=== PATIENT | male | born 1990 | race Caucasian/White ===

== ENCOUNTER 2021-07-11 10:13 | Outpatient (REF) | payer OTHER, SELFPAY ==
[2021-07-11 11:12] LABS: COVID-19 Test Negative (Negative)
== END 2021-07-11 10:14 | disposition home or self-care (01) ==
LOC: HO.LAB 10:13
PROVIDERS: Visit Provider Internal Medicine
DX: Z20.822 Contact with and (suspected) exposure to COVID-19 (principal)
CPT/HCPCS: 36415; 87635; C9803

== ENCOUNTER 2021-07-26 11:44 | Outpatient (REF) | payer OTHER, SELFPAY ==
[2021-07-26 14:13] LABS: COVID-19 Test Positive (Negative)
== END 2021-07-26 11:45 | disposition home or self-care (01) ==
LOC: HO.LAB 11:44
PROVIDERS: Visit Provider Internal Medicine
DX: Z20.822 Contact with and (suspected) exposure to COVID-19 (principal)
CPT/HCPCS: 36415; 87635; C9803

== ENCOUNTER 2022-02-03 19:24 | Emergency (ER) | payer OTHER, SELFPAY ==
[2022-02-03 19:35] VITALS: BP 132/86; PULSE 70; RESP 18; TEMP 37.3; O2SAT 98; BMI 31.9
== END 2022-02-03 22:06 | disposition left against medical advice (07) ==
PROVIDERS: Emergency Provider Emergency Medicine
DX: S89.91XA Unspecified injury of right lower leg, initial encounter (principal); X50.1XXA Overexertion from prolonged static or awkward postures, initial encounter; M79.604 Pain in right leg; Y93.83 Activity, rough housing and horseplay; Y92.9 Unspecified place or not applicable; Y99.9 Unspecified external cause status
CPT/HCPCS: 99281

== ENCOUNTER → 2022-10-25 11:00 | Outpatient (BNVA) | payer SELFPAY | PROVIDERS: Visit Provider Physician Assistant | DX: Z02.79 Encounter for issue of other medical certificate (principal) ==

== ENCOUNTER 2023-02-19 09:48 | Outpatient (AMB) | payer OTHER, SELFPAY ==
--- NOTE | 2023-02-19 10:51 | MHC.OFFWIV ---
Intake Vital Signs 02/19/23 10:59 Height 6 ft BP 102/74 Blood Pressure Location Lt brachial Position Sitting Pulse 67 Pulse Source Pulse Oximeter Temp 96.8 F Temp Source Temporal Artery Scan Pulse Oximetry (%) 97 Oxygen Delivery Method Room Air Intake Visit Reasons: EP Strep? [phone] Intake Note: Pt is here c/o sore throat for the last week. Pt states he has tested positive for strep five times in the last year. Patient Tobacco Use Status: Never used Tobacco Allergies No Known Allergies Allergy (Verified 02/19/23 11:28) Medication List - Last Reconciled 02/19/23 by Kofi Stewart MD No Known Home Meds Do you need a note to return to daycare/school/sports/work: No HPI EP Strep? [phone] HPI Details Patient presents for a sick visit. Reporting symptoms of sinus congestion, sore throat and difficulty swallowing. Low-grade fever. No family member is sick. No recent travel. Patient reports symptoms of malaise and fatigue. PFSH Social History Patient Tobacco Use Status: Never used Tobacco Physical Exam Vital Signs: Last Vital Signs Temp 96.8 F 02/19/23 10:59 Pulse 67 02/19/23 10:59 BP 102/74 02/19/23 10:59 Pulse Ox 97 02/19/23 10:59 Oxygen Delivery Method Room Air 02/19/23 10:59 Const General: cooperative and healthy appearing Nutritional Appearance: well nourished Orientation/consciousness: patient oriented x3 Limitations: no limitations HEENT Head: Yes normal to inspection Eyes General: appearance normal, both eyes and all related structures Neck Neck: Yes normal visual inspection Chest Chest palpation & inspection: normal palpation of entire chest wall Resp Effort & Inspection: normal respiratory effort Neuro General: patient oriented x3 Results AMB Rapid Strep AMB Rapid Strep Negative Last Edit by Jeanna Pelayo CMA on 02/19/23 11:11 Results Reviewed Results Reviewed: Laboratory Last Values Strep Scn [facility] Negative 02/19/23 11:09 Assessment & Plan Assessment & Plan (1) Upper respiratory tract infection: Code(s): J06.9 - Acute upper respiratory infection, unspecified Plan: Antibiotics ordered. Increase fluid intake. Tylenol for aches and pains. If symptoms worsen, follow-up here for a recheck. Orders: Orders AMB Rapid Strep Screen Today Z13.9 - Encounter for screening, unspecified Coding Level of Care Code Est Pt Level 3 (01032) Diagnoses Upper respiratory tract infection J06.9
[2023-02-19 10:59] VITALS: BP 102/74; PULSE 67; TEMP 36; O2SAT 97
== END 2023-02-19 11:49 | disposition home or self-care (01) ==
PROVIDERS: PCP Physician Assistant; Visit Provider Internal Medicine
DX: Z13.9 Encounter for screening, unspecified (principal); J06.9 Acute upper respiratory infection, unspecified
CPT/HCPCS: 87880; 99213

== ENCOUNTER 2023-05-01 15:54 | Outpatient (AMB) | payer OTHER, SELFPAY ==
[2023-05-01 15:57] VITALS: BP 122/82; PULSE 70; RESP 17; O2SAT 98; BMI 29.4
--- NOTE | 2023-05-01 15:57 | MHC.PC.OV ---
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 Recently had an episode a neck mass that spontaneous resolved. He does report getting strep throat every summer requiring antibiotics. Otherwise he has no complaints. Vaccines: Up-to-date with tetanus vaccine. Declines flu vaccine. Has gotten COVID vaccine [facility] Social History (Updated 05/01/23 @ 16:07 by Maximo Ruvalcaba PA-C) Housing: House Alcohol intake: current Alcohol intake frequency: a few times a month Alcohol type: beer Patient Tobacco Use Status: Never used Tobacco e-Cigarette/Vaping Use: Never Used Current occupational status: employed Current occupation: [employer] Cognitive needs: No Hearing needs: No Vision needs: No Questionnaire PHQ-9 Over the last 2 weeks, how often have you been bothered by any of the following problems? 1. Little interest or pleasure in doing things: not at all 2. Feeling down, depressed, or hopeless: not at all 3. Trouble falling or staying asleep, or sleeping too much: not at all 4. Feeling tired or having little energy: not at all 5. Poor appetite or overeating: not at all 6. Feeling bad about yourself - or that you are a failure or have let yourself or your family down: not at all 7. Trouble concentrating on things, such as reading the newspaper or watching television: not at all 8. Moving or speaking so slowly that other people could have noticed. Or the opposite - being so fidgety or restless that you have been moving around a lot more than usual: not at all 9. Thoughts that you would be better off or of hurting yourself in some way: not at all Total score: 0 Depression Screening Interpretation: Negative 60184 - PHQ-9 Billing: Yes Source: Developed by Drs. Ajit Mazariegos, Isabel Hoffmann, Blanco Us and colleagues, with an educational berkley from [employer]. Thrive Questionnaire Date Thrive assessed: 05/01/23 I am a: Patient What is your living situation today?: I have a steady place to live Within the past 12 months, did the food you bought not last and you didn't have the money to get more?: Never true Within the past 12 months, did you worry whether your food would run out before you got money to buy more?: Never true Do you have trouble paying for medicines?: No Do you have trouble getting transportation to medical appointments?: No Do you have trouble paying your heating and electricity bill?: No Do you have trouble taking care of your child, family member or friend?: No Do you have trouble with day-to-day activities such as bathing, preparing meals, shopping, managing finances, etc.?: No Are you currently unemployed and looking for a job?: No Are you interested in more education?: No Please select the resources that you would like help with: None Currently or been in a relationship where the following occur: no concerns reported AUDIT C Alcohol Use Questionnaire (AUDIT-C) 1. How often do you have a drink containing alcohol?: Monthly or less 2. How many drinks containing alcohol do you have on a typical day when you are drinking?: 1 or 2 3. How often do you have six or more drinks on one occasion?: Never Total Score: 1 BRODY-7 AMB Questionnaire BRODY-7 Date BRODY - 7 assessed: 05/01/23 Feeling nervous, anxious, or on edge: 0 = Not at all Not being able to stop or control worryin = Not at all Worrying too much about different things: 0 = Not at all Trouble relaxin = Not at all Being so restless that it is hard to sit still: 0 = Not at all Becoming easily annoyed or irritable: 0 = Not at all Feeling afraid as if something awful might happen: 0 = Not at all Total BRODY-7 score (0-4 normal; 5-9 mild; 10-14 moderate; 15-21 severe): 0 Source: Developed by Drs. Ajit Mazariegos, Isabel Hoffmann, Blanco Us and colleagues, with an educational berkley from [employer]. BRODY-7 Assessment Billing BRODY-7 Assessment Tool: BRODY-7 Assessment 49961 Review of Systems Const Denies headache(s) Eyes Denies loss of vision ENT Denies vertigo, Denies dizziness, Denies headache(s) and Denies sore throat Card Denies chest pain, Denies leg edema and Denies lightheadedness Resp Denies cough, Denies hemoptysis and Denies wheezing GI Denies abdominal pain, Denies melena, Denies constipation, Denies diarrhea and Denies vomiting Denies dysuria, Denies urinary frequency and Denies urinary urgency Musc Denies arthralgias, Denies joint swelling, Denies numbness and Denies tingling Neuro Denies Abnormal speech present, Denies behavioral changes, Denies vertigo, Denies dizziness, Denies headache(s), Denies loss of vision, Denies memory loss, Denies numbness and Denies tingling Psych Denies anxiety, Denies behavioral changes, Denies depression, Denies memory loss and Denies panic attacks Edson/Lymph Denies easy bleeding and Denies easy bruising Aller/Immun Denies wheezing Physical exam (Primary Care) Vital Signs: Last Vital Signs Pulse 70 05/01/23 15:57 Resp 17 05/01/23 15:57 BP 122/82 05/01/23 15:57 Pulse Ox 98 05/01/23 15:57 Oxygen Delivery Method Room Air 05/01/23 15:57 BMI result Body Mass Index 29.4 Tobacco/Smoking Status: Tobacco use Status Tobacco use date assessed 05/01/23 05/01/23 16:03 Patient Tobacco Use Status Never used Tobacco 05/01/23 16:03 e-Cigarette/Vaping Use Never Used 05/01/23 16:03 PHQ-9: PHQ-9 Score PHQ-9: Total score 0 05/01/23 16:03 Depression Screening Interpretation: Negative Thrive Assessment: Date of Thrive Assessment Date Thrive assessed 05/01/23 05/01/23 16:03 Currently or been in a relationship where the following occur: no concerns reported Const General: healthy appearing, no acute distress, alert and awake Nutritional Appearance: well nourished Orientation/consciousness: oriented to person, oriented to place and oriented to time HENMT Ears: TM's normal bilaterally General nose exam: Normal nasal mucous membranes and turbinates present Eyes Conjunctivae: conjunctivae normal Sclerae: sclerae normal Pupils: Equal, round and reactive pupils present Neck Neck: Yes no lymphadenopathy and Yes no JVD Thyroid: Thyroid normal Carotids: no bruits Resp Effort & Inspection: normal respiratory effort and not tachypneic Auscultation: no crackles, no rales, no rhonchi and no wheezes Cardio Rate: regular rate Rhythm: regular rhythm Heart sounds: no murmurs and normal S1 and S2 GI Palpation (GI): Soft to palpation, nontender, no hepatomegaly and no splenomegaly Auscultation: normal bowel sounds Skin General skin exam: no rashes or lesions noted and dry skin Neuro General: oriented to person, oriented to place and oriented to time Cranial nerves: Yes Equal, round and reactive pupils present Speech: No Abnormal speech present Gait exam (Neuro): Normal gait present Motor exam (neuro): no tremor noted Extrem Right upper extremity: full ROM Left upper extremity: full ROM Right lower extremity: full ROM; no edema Left lower extremity: full ROM; no edema Psych Mental Status: mental status grossly normal Speech and movement: Normal speech and movement present Affect: normal affect Attitude: cooperative Thought process: Normal thought process present Assessment and Plan Assessment & Plan (1) H/O paroxysmal supraventricular tachycardia: Code(s): Z86.79 - Personal history of other diseases of the circulatory system Plan: Patient has a history paroxysmal supraventricular tachycardia since age 10. Has been evaluated by Cardiology in the past though did not need any medication. He reports his frequency of attacks are random and only last about 5 minutes. (2) Screening for diabetes mellitus (DM): Code(s): Z13.1 - Encounter for screening for diabetes mellitus Orders: Orders Comprehensive [place]. Panel Fast Today Z13.1 - Encounter for screening for diabetes mellitus Coding Level of Care Code New Pt Level 4 (11931) Diagnoses H/O paroxysmal supraventricular tachycardia Z86.79 Screening for diabetes mellitus (DM) Z13.1 Additional Codes BRODY-7 Assessment Billing - BRODY-7 Assessment Tool: BRODY-7 Assessment 26535 ([id number])
== END 2023-05-01 16:17 | disposition home or self-care (01) ==
PROVIDERS: PCP Physician Assistant; Visit Provider Physician Assistant
DX: Z86.79 Personal history of other diseases of the circulatory system (principal); Z13.1 Encounter for screening for diabetes mellitus
CPT/HCPCS: 99204

== ENCOUNTER 2023-10-30 07:41 | Outpatient (REF) | payer OTHER, SELFPAY ==
[2023-10-30 08:54] LABS: Alanine Aminotransferase 35 U/L (0-40); Albumin Level 4.4 g/dL (3.5-5.0); Alkaline Phosphatase 58 U/L (39-117); Anion Gap 11 (12-20); Aspartate Amino Transferase 24 U/L (5-37); Bilirubin Total 0.9 mg/dL (0.0-1.0); Blood Urea Nitrogen 14 mg/dL (9-16); Calcium 9.2 mg/dL (8.4-10.2); Carbon Dioxide 25 mmol/L (22-29); Chloride 107 mmol/L (96-108); Estimated Glomerular Filt Rate > 60; Glucose Fasting 103 mg/dL (60-99); Potassium 3.9 mmol/L (3.3-5.1); Sodium 139 mmol/L (135-145); Total Protein 7.3 g/dL (6.5-8.0)
== END 2023-10-30 07:42 | disposition home or self-care (01) ==
LOC: HO.LAB 07:41
PROVIDERS: PCP Physician Assistant; Visit Provider Physician Assistant
DX: Z13.1 Encounter for screening for diabetes mellitus (principal)
CPT/HCPCS: 36415; 80053

== ENCOUNTER 2023-12-01 22:11 | Emergency (ER) | payer OTHER, SELFPAY ==
[2023-12-01 22:15] VITALS: BP 129/87; PULSE 80; RESP 16; TEMP 36.1; O2SAT 97; BMI 32.8
[2023-12-02 00:14] VITALS: BP 120/80; PULSE 77; RESP 16; TEMP 36.6; O2SAT 97
[2023-12-02] MEDS: Fluorescein Sodium STRIP 1 STRIP EYE-RIGHT (00:14)
[2023-12-02] MEDS: Tobramycin Sulfate 0.3% Sol Op 5 ML BTL 2 DROP EYE-RIGHT (00:14)
[2023-12-02] MEDS: Tetracaine HCl/PF 0.5% Oph Sol 4 ML DROPS 1 DROP EYE-RIGHT (00:14)
--- NOTE | 2023-12-02 01:22 | ED_ITS ---
HPI - Eye Problem General Chief complaint: Eye Problems Stated complaint: metal sliver in right eye Time Seen by Provider: 12/01/23 23:08 Source: patient Mode of arrival: ambulatory Limitations: no limitations History of Present Illness HPI Narrative: Patient was cutting metal earlier today and small speck of metal dust went to the right eye this happened at 14:00. No vision loss feels watery and foreign body sensation in the right eye Related Data Home Medications ?Medication ?Instructions ?Recorded ?Confirmed No Known Home Meds 05/01/23 05/01/23 Allergies Allergy/AdvReac Type Severity Reaction Status Date / Time No Known Allergies Allergy Verified 12/01/23 22:19 Review of Systems 2 Review of Systems: Yes all other systems are reviewed and are negative [facility] Social History Social History Housing: House Alcohol intake: current Alcohol intake frequency: a few times a month Alcohol type: beer Patient Tobacco Use Status: Never used Tobacco e-Cigarette/Vaping Use: Never Used Advance Directives: No Advance Directives Information Provided: No Do you have a plan to hurt others: No Plan Current occupational status: employed Current occupation: [employer] Cognitive needs: No Hearing needs: No Vision needs: No Physical Exam 2 Vital Signs: Vital Signs: Last Vital Signs Temp 97.9 F 12/02/23 00:14 Pulse 77 12/02/23 00:14 Resp 16 12/02/23 00:14 BP 120/80 12/02/23 00:14 Pulse Ox 97 12/02/23 00:14 O2 Del Method Room Air 12/02/23 00:14 BMI result Body Mass Index 32.8 Eyes: Eyes/upper lids images: 1. Small metal pedicle at 03:00 o'clock Medications Administered Discontinued Medications Generic Name Dose Route Start Last Admin Trade Name Freq PRN Reason Stop Dose Admin Fluorescein Sodium 1 strip 12/01/23 23:56 12/02/23 00:14 Fluorescein Sodium Strip EYE-RIGHT 12/01/23 23:57 1 strip ONCE ONE Administration Tetracaine HCl 1 drop 12/01/23 23:39 12/02/23 00:14 Tetracaine Hcl/Pf 0.5% Oph Marlen 4 Ml Drops EYE-RIGHT 12/01/23 23:40 1 drop ONCE ONE Administration Tobramycin Sulfate 2 drop 12/01/23 23:41 12/02/23 00:14 Tobramycin Sulfate 0.3% Marlen Op 5 Ml Btl EYE-RIGHT 12/01/23 23:42 2 drop ONCE ONE Administration Medical Decision Making Medical Decision Making MDM Narrative: Small metal dust was removed at 03:00 o'clock position using 21 gauge needle in Q-tip small corneal abrasion after removal of the foreign body Procedures FB Removal Eye Location: eye (R) Topical anesthetic used: tetracaine Foreign body: metal Evidence of corneal penetration: No Technique: cotton tip swab and needle Procedure performed under: direct visualization with magnification Post-procedure medication: ophthalmic antibiotic and topical anesthetic Patient tolerated procedure: well and no complications Discharge Plan Discharge Clinical Impression: Foreign body in cornea, left eye, initial encounter Patient Disposition: Home, Self-Care Instructions: Eye Foreign Body (ED) Additional Instructions: Local care as advised Metal dust removed completely use Tobramycin eye drops 1 drop every 4-6 hours into left eye until heals completely Prescriptions: No Action No Known Home Meds Interventions: ED Discharge Assessment Last Done: 12/02/23 00:14 Discharge Date/Time: 12/02/23 00:15 Print Language: [place]
== END 2023-12-02 00:15 | disposition home or self-care (01) ==
PROVIDERS: Emergency Provider Internal Medicine; PCP Physician Assistant
DX: T15.01XA Foreign body in cornea, right eye, initial encounter (principal); W44.8XXA Other foreign body entering into or through a natural orifice, initial encounter; Y93.9 Activity, unspecified; Y92.9 Unspecified place or not applicable; Y99.9 Unspecified external cause status
CPT/HCPCS: 65205; 99282; 99283

== ENCOUNTER 2023-12-05 20:03 | Emergency (ER) | payer OTHER, SELFPAY ==
--- NOTE | ~2023-12-05 | XR_ITS ---
EXAMINATION: XR LUMBAR SPINE CLINICAL INFORMATION: Back pain COMPARISON: None available. TECHNIQUE: Three views of the lumbar spine. FINDINGS: There is anatomic alignment of the lumbar vertebral bodies and posterior elements. Vertebral body heights and intervertebral disc spaces are maintained. No acute fracture is seen. Sacroiliac joints are intact. XR/XR lumbar spine 2-3V IMPRESSION: No acute findings identified.
[2023-12-05 20:17] VITALS: BP 123/83; BP 130/70; PULSE 64; PULSE 78; RESP 16; TEMP 36.8; O2SAT 98; BMI 31.8
[2023-12-05 22:44] VITALS: BP 114/78; PULSE 60; RESP 18; TEMP 36.8; O2SAT 98
[2023-12-06] MEDS: Cyclobenzaprine HCl 10 MG TABLET PO (03:09)
[2023-12-06] MEDS: Ketorolac Tromethamine 60 MG/2 ML VIAL IM (03:10)
[2023-12-06 03:15] VITALS: RESP 16
[2023-12-06] MEDS: HYDROmorphone HCl 2 MG/ML VIAL IM (03:15)
--- NOTE | 2023-12-06 03:28 | ED.BACK ---
HPI - Back Pain/Injury General Chief Complaint: Back Pain/Injury Stated Complaint: LOW BACK PAIN,UNABLE TO WALK Time Seen by Provider: 12/06/23 02:43 Source: patient, family and EMS Mode of arrival: EMS Limitations: no limitations History of Present Illness HPI Narrative: 33-year-old male came in for evaluation of back pain started yesterday morning while he was shoveling in his backyard pain is localized to lower back no radiation, no numbness, no urinary incontinence, patient had to come by ambulance for severe pain evaluation. No history of IV drug abuse, no fever, no dysuria, no frequency urination. Related Data Previous Rx's ?Medication ?Instructions ?Recorded cyclobenzaprine 10 mg tablet 10 mg PO TID PRN muscle spasm #10 12/06/23 tabs ibuprofen 800 mg tablet 800 mg PO Q8H PRN pain #14 tabs 12/06/23 Allergies Allergy/AdvReac Type Severity Reaction Status Date / Time No Known Allergies Allergy Verified 12/05/23 20:21 Review of Systems Review of Systems: All other systems are reviewed and are negative Constitutional: Reports as per HPI and Reports no additional constitutional complaints Eyes: Reports as per HPI and Reports no additional eye complaints Reports system reviewed and no additional complaints, except as documented Cardiovascular: Reports as per HPI and Reports no additional cardiovascular complaints Respiratory: Reports as per HPI and Reports no additional respiratory complaints Gastrointestinal: Reports as per HPI and Reports no additional gastrointestinal complaints Genitourinary: Reports no additional female genitourinary complaints Musculoskeletal: Reports no additional musculoskeletal complaints Skin/Breast: Reports system reviewed and no additional complaints, except as docu Psychiatric: Reports no additional psychiatric complaints Endocrine: Reports no additional endocrine complaints Hematologic/Lymphatic: Reports no additional hematologic/lymphatic complaints Allergic/Immunologic: Reports no additional allergic/immunologic complaints Reports system reviewed and no additional complaints, except as documented and Reports Abnormal speech present [facility] Social History Social History Housing: House Alcohol intake: never Patient Tobacco Use Status: Never used Tobacco Smoked in Last 30 Days: No e-Cigarette/Vaping Use: Never Used Advance Directives: No Advance Directives Information Provided: No Current occupational status: employed Current occupation: [employer] Cognitive needs: No Hearing needs: No Vision needs: No Physical Exam Vital Signs: Vital Signs: Last Vital Signs Temp 97.7 F 05/03/24 05:08 Pulse 55 12/06/23 05:08 Resp 16 12/06/23 05:08 BP 119/79 12/06/23 05:08 Pulse Ox 95 12/06/23 05:08 O2 Del Method Room Air 12/06/23 05:08 BMI result Body Mass Index 31.8 Vital signs have been reviewed and appear to be correct. Blood pressure elevated. Heart rate normal. Respiratory rate normal. Temperature normal. Oxygen saturation normal. Appearance: Alert. Oriented X3. No acute distress. Head: Normal external exam. Normocephalic. Atraumatic. No Ojeda signs noted. No raccoon eyes noted Eyes: PERRLA. EOMI. Conjunctiva and sclera normal. Eyelids normal. ENT: TM's Normal. Pharynx normal. Uvula midline. Moist mucous membranes. No trismus noted. No drooling noted. No muffled voice noted. Neck: Normal inspection. Neck supple. FROM. No adenopathy. Thyroid Normal. No meningeal signs. No neck mass noted. CVS: Normal heart rate and rhythm. Heart sound normal. No murmurs noted. Pulses normal throughout. Respiratory: No respiratory distress. Painless inspiration. Breath sounds normal. No wheezes/rales/rhonchi noted. Chest nontender. No accessory muscle usage noted or decreased air movement noted. Abdomen: Soft and nontender. Bowel sounds normal in all 4 quadrants. No distention noted. No organomegaly noted. No visible injury noted. Back: Focal tenderness to the lower back, bilateral parasternal muscle spasm. Skin: Skin warm and dry. Normal skin color. Normal skin turgor. No rashes/lesions/lacerations noted. Extremities: No lower extremity edema. Extremities exhibit normal range of motion. Extremities nontender. Neuro: Oriented X 3. Cranial nerve exam: II-XII are grossly intact No motor deficit. No sensory deficit. Reflexes normal. Perianal sensation is intact, able to ambulate with steady gait. Course Reevaluation(s) Reevaluation #1: Back pain secondary to back muscle spasm after working in the [employer], unremarkable neuro exam, patient has unremarkable x-ray. [place] better with pain medication and muscle relaxant. Now able to ambulate and get out of bed with much less pain, Will discharge home with muscle relaxant and NSAIDs. Time: 05:36 Medications Administered Discontinued Medications Generic Name Dose Route Start Last Admin Trade Name Freq PRN Reason Stop Dose Admin Cyclobenzaprine HCl 10 mg 12/06/23 03:04 12/06/23 03:09 Cyclobenzaprine Hcl 10 Mg Tablet PO 12/06/23 03:05 10 mg ONCE ONE Administration Hydromorphone HCl 2 mg 12/06/23 03:04 12/06/23 03:15 Hydromorphone Hcl 2 Mg/Ml Vial IM 12/06/23 03:05 2 mg ONCE ONE Administration Protocol Ketorolac Tromethamine 60 mg 12/06/23 03:04 12/06/23 03:10 Ketorolac Tromethamine 60 Mg/2 Ml Vial IM 12/06/23 03:05 60 mg ONCE ONE Administration Medical Decision Making Differential Diagnosis Differential Diagnoses: The differential diagnosis associated with the presentation includes (Compression fracture, lumbar radiculopathy, myofascial lumbar spasm.) Admission/Observation Consideration of admission/observation: Escalation of care including admission/observation considered Independent Interpretation I performed an independent interpretation of an: Plain X-Ray (Lumbar spine: No acute pathology.) Radiology Impression Discussion of test interpretation with radiology: I have reviewed the radiologist's reading. Discharge Plan Discharge Clinical Impression: Strain of lumbar region Patient Disposition: Home, Self-Care Instructions: Low Back Strain (ED) Prescriptions: New ibuprofen 800 mg tablet 800 mg PO Q8H PRN (Reason: pain) Qty: 14 0RF cyclobenzaprine 10 mg tablet 10 mg PO TID PRN (Reason: muscle spasm) Qty: 10 0RF Referrals: Maximo Ruvalcaba PA-C [Primary Care Provider] - Stand Alone Forms: Work/School Release Print Language: Bengali
[2023-12-06 05:08] VITALS: BP 119/79; PULSE 55; RESP 16; TEMP 36.5; O2SAT 95
--- NOTE | 2023-12-06 05:34 | PC.NURSE ---
pt is able to stand without pain, pt has a steady gait. pt feels ready for discharge.
[2023-12-06 05:52] VITALS: BP 119/79; PULSE 55; RESP 16; TEMP 36.5; O2SAT 95
== END 2023-12-06 05:53 | disposition home or self-care (01) ==
PROVIDERS: Emergency Provider Emergency Medicine; PCP Physician Assistant
DX: S39.012A Strain of muscle, fascia and tendon of lower back, initial encounter (principal); R26.2 Difficulty in walking, not elsewhere classified; X58.XXXA Exposure to other specified factors, initial encounter; Y93.H2 Activity, gardening and landscaping; Y92.007 Garden or yard of unspecified non-institutional (private) residence as the place of occurrence of the external cause; Y93.H1 Activity, digging, shoveling and raking
CPT/HCPCS: 72100; 96372; 99284; J1170; J1885

== ENCOUNTER 2024-07-13 08:06 | Outpatient (AMB) | payer OTHER, SELFPAY ==
[2024-07-13 08:08] VITALS: BP 118/84; PULSE 64; O2SAT 98; BMI 32.5
--- NOTE | 2024-07-13 08:08 | MHC.PC.OV ---
Vital Signs 07/13/24 08:08 Height 5 ft 11 in Weight 233 lb BMI 32.5 BP 118/84 Blood Pressure Location Lt brachial Position Sitting Pulse 64 Pulse Source Pulse Oximeter Pulse Oximetry (%) 98 Oxygen Delivery Method Room Air Intake Visit Reasons: PE Intake Note: Patient here for a physical exam Director Of Assessing Required: No Accompanied by: Self / Same As Patient Allergies No Known Allergies Allergy (Verified 07/13/24 08:16) Medication List - Last Reconciled 07/13/24 by Maximo Ruvalcaba PA-C No Known Home Meds Tobacco use date assessed: 07/13/24 Dental Screening Dental Screen Date: 07/13/24 Did you have a dental visit in the last 12 months?: Yes Did you have a dental problem in the last 6 months where you did not have access to dental care?: No Was dental information given to patient?: Patient has dentist HPI PE HPI Details Patient is a 34-year-old male here today for routine annual physical. Patient has a past medical history significant for paroxysmal supraventricular tachycardia. Otherwise generally healthy 34-year-old male. No complaints today Class 1 obesity: Noted a small amount of weight gain since last office visit. Today's BMI at 32.5. Does admit to dietary portion control issues .. Impaired glucose metabolism: Most recent fasting blood sugar 1-3, will work on being more physically active and dietary modifications Vaccines: Up-to-date with COVID vaccine, tetanus vaccine, declines flu vaccine [facility] Surgical History History of vasectomy Family History Mother No problems noted. Father No problems noted. Social History (Updated 07/13/24 @ 08:19 by Maximo Ruvalcaba PA-C) Housing: House Alcohol intake: current Alcohol intake frequency: holidays/special occasions only Alcohol type: wine Patient Tobacco Use Status: Never used Tobacco e-Cigarette/Vaping Use: Never Used Second Hand Smoke Exposure: No service: No Current occupational status: employed Current occupation: [employer] Current occupational exposures/hazards: No Cognitive needs: No Hearing needs: No Vision needs: Yes Questionnaire PHQ-9 Over the last 2 weeks, how often have you been bothered by any of the following problems? 1. Little interest or pleasure in doing things: not at all 2. Feeling down, depressed, or hopeless: not at all 3. Trouble falling or staying asleep, or sleeping too much: not at all 4. Feeling tired or having little energy: not at all 5. Poor appetite or overeating: not at all 6. Feeling bad about yourself - or that you are a failure or have let yourself or your family down: not at all 7. Trouble concentrating on things, such as reading the newspaper or watching television: not at all 8. Moving or speaking so slowly that other people could have noticed. Or the opposite - being so fidgety or restless that you have been moving around a lot more than usual: not at all 9. Thoughts that you would be better off or of hurting yourself in some way: not at all Total score: 0 Depression Screening Interpretation: Negative Depression Screening Done: Yes 98131 - PHQ-9 Billing: Yes Source: Developed by Drs. Ajit Mazariegos, Isabel Hoffmann, Blanco Us and colleagues, with an educational berkley from [employer]. Thrive Questionnaire Date Thrive assessed: 07/13/24 I am a: Patient What is your living situation today?: I have a steady place to live Within the past 12 months, did the food you bought not last and you didn't have the money to get more?: Never true Within the past 12 months, did you worry whether your food would run out before you got money to buy more?: Never true Do you have trouble paying for medicines?: No Do you have trouble getting transportation to medical appointments?: No Do you have trouble paying your heating and electricity bill?: No Do you have trouble taking care of your child, family member or friend?: No Do you have trouble with day-to-day activities such as bathing, preparing meals, shopping, managing finances, etc.?: No Are you currently unemployed and looking for a job?: No Are you interested in more education?: Yes Please select the resources that you would like help with: Education Currently or been in a relationship where the following occur: No concerns reported THRIVE Score: 0 AUDIT C Alcohol Use Questionnaire (AUDIT-C) 1. How often do you have a drink containing alcohol?: Never Total Score: 0 BRODY-7 AMB Questionnaire BRODY-7 Date BRODY - 7 assessed: 07/13/24 Feeling nervous, anxious, or on edge: 0 = Not at all Not being able to stop or control worryin = Not at all Worrying too much about different things: 0 = Not at all Trouble relaxin = Not at all Being so restless that it is hard to sit still: 0 = Not at all Becoming easily annoyed or irritable: 0 = Not at all Feeling afraid as if something awful might happen: 0 = Not at all Total BRODY-7 score (0-4 normal; 5-9 mild; 10-14 moderate; 15-21 severe): 0 Source: Developed by Drs. Ajit Mazariegos, Isabel Hoffmann, lBanco Us and colleagues, with an educational berkley from [employer]. BRODY-7 Assessment Billing BRODY-7 Assessment Tool: BRODY-7 Assessment 36871 Review of Systems Const Denies body aches, Denies chills, Denies excessive sweating, Denies fatigue, Denies fever(s) and Denies headache(s) Eyes Denies blurry vision ENT Denies dysphagia, Denies vertigo, Denies dizziness, Denies headache(s), Denies hearing loss and Denies tinnitus Card Denies chest pain, Denies chest pain with activity, Denies syncope, Denies irregular heart rhythm and Denies dyspnea Resp Denies chest congestion, Denies cough, Denies hemoptysis, Denies dyspnea and Denies wheezing GI Denies abdominal pain, Denies melena, Denies hematochezia, Denies coffee ground emesis, Denies dysphagia, Denies diarrhea, Denies nausea and Denies vomiting Denies difficulty urinating, Denies dysuria, Denies urinary frequency, Denies urinary hesitancy and Denies urinary urgency Musc Denies arthralgias, Denies limited range of motion, Denies muscle cramps and Denies muscle weakness Skin/Breast Denies rash and Denies skin ulcer Neuro Denies Abnormal speech present, Denies confusion, Denies vertigo, Denies dizziness, Denies syncope, Denies headache(s), Denies memory loss and Denies seizure-like activity Psych Denies anxiety, Denies confusion, Denies depression, Denies memory loss, Denies panic attacks and Denies paranoia Endo Denies excessive sweating, Denies fatigue, Denies flushing, Denies polydipsia and Denies polyuria Aller/Immun Denies wheezing Physical exam (Primary Care) Vital Signs: Last Vital Signs Pulse 64 07/13/24 08:08 BP 118/84 07/13/24 08:08 Pulse Ox 98 07/13/24 08:08 Oxygen Delivery Method Room Air 07/13/24 08:08 BMI result Body Mass Index 32.5 BMI Assessment/Plan discussion: High BMI High, discussed plan: lifestyle, weight reduction, dietary and physical activity Tobacco/Smoking Status: Tobacco use Status Tobacco use date assessed 07/13/24 07/13/24 08:14 Patient Tobacco Use Status Never used Tobacco 07/13/24 08:14 e-Cigarette/Vaping Use Never Used 07/13/24 08:14 PHQ-9: PHQ-9 Score PHQ-9: Total score 0 07/13/24 08:14 Depression Screening Interpretation: Negative Thrive Assessment: Date of Thrive Assessment Date Thrive assessed 07/13/24 07/13/24 08:14 Currently or been in a relationship where the following occur: No concerns reported Const General: cooperative, comfortable, no acute distress, alert and awake; No confusion Orientation/consciousness: oriented to person, oriented to place, patient oriented x3 and No confusion HENMT Head: Yes normocephalic Ears: external ears normal and TM's normal bilaterally Face and sinus: No sinus tenderness Mouth: Normal oral and palatal mucosa present and tongue normal Teeth and gingiva: dentition normal and gingiva normal Throat: Yes posterior oropharynx normal, Yes tonsils normal and Yes uvula midline Eyes Conjunctivae: conjunctivae normal Sclerae: sclerae normal Pupils: Equal, round and reactive pupils present EOM: EOMs intact bilaterally Direct Ophthalmoscopy: No no photophobia Neck Neck: Yes no lymphadenopathy, No tender and Yes no JVD Thyroid: Thyroid normal Carotids: no bruits Chest Chest palpation & inspection: no tenderness Resp Effort & Inspection: normal respiratory effort, no audible wheezes, not labored and no stridor Auscultation: no crackles, no rales, no rhonchi and no wheezes Cardio Jugular venous distension: no JVD Rate: regular rate, not bradycardic and not tachycardic Rhythm: regular rhythm Bruits: no carotid bruits Peripheral pulses: Peripheral pulses 2+ throughout GI Inspection: Yes normal to inspection, No abdominal wall ecchymosis and No visible herniation Palpation (GI): Soft to palpation, nontender, no guarding, not rigid and No hepatosplenomegaly present Auscultation: normoactive bowel sounds General: Yes no CVA tenderness Back/Spine/Pelvis Back: no CVA tenderness and No back tenderness Cervical Spine: cervical ROM normal Thoracic/Lumbar Spine: thoracic and lumbar spine normal to inspection, straight leg raise negative bilaterally, No thoraco-lumbar ROM limited and No lumbar spinal tenderness Skin Lesions: no lesions Rashes: no rashes Wounds: no wounds Neuro General: oriented to person, oriented to place, patient oriented x3, CN's II-XI intact bilaterally and No confusion Cranial nerves: Yes Equal, round and reactive pupils present and Yes Normal accommodation reflex present Cognition (Neuro): normal cognition Speech: No Abnormal speech present Gait exam (Neuro): Normal gait present Motor exam (neuro): 5/5 motor strength present throughout Extrem Right upper extremity: full ROM; no cyanosis Left upper extremity: full ROM; no cyanosis Right lower extremity: no edema Left lower extremity: no edema Psych Appearance: grossly normal Mental Status: mental status grossly normal Affect: normal affect Attitude: cooperative Thought process: Normal thought process present Office Procedures Flu Questionnaire Does the patient have a severe egg allergy?: No Immunizations Fluarix Triv [id number] (PF) 45 mcg (15 mcg x 3)/0.5 mL IM syringe Performing Provider: Maximo Ruvalcaba PA-C [facility] Documented (not given) by: MAX Hill on 07/13/24 08:15 Reason Not Given: Patient Refused Coding Level of Care Code Est Pt Prev Care 18-39y(33530) Diagnoses Annual physical exam Z00.00 Impaired glucose metabolism R73.09 Additional Codes PHQ-9 - 35158 - PHQ-9 Billing: Yes ([id number]) BRODY-7 Assessment Billing - BRDOY-7 Assessment Tool: BRODY-7 Assessment 49311 ([id number]) Assessment & Plan Assessment & Plan (1) Annual physical exam: Code(s): Z00.00 - Encounter for general adult medical examination without abnormal findings Category: Medical Plan: As per HPI (2) Impaired glucose metabolism: Code(s): R73.09 - Other abnormal glucose Category: Medical Plan: Patient's most recent fasting blood sugar slightly elevated at 103. He does admit to some dietary indiscretion and portion control issue. He will work on being more physically active and watch his diet. Orders: Orders Comprehensive [place]. Panel Fast Today R73.09 - Other abnormal glucose Influenza [id number] Immunization Today Z23 - Encounter for immunization Hemoglobin A1c Today R73.09 - Other abnormal glucose
== END 2024-07-13 08:31 | disposition home or self-care (01) ==
PROVIDERS: PCP Physician Assistant; Visit Provider Physician Assistant
DX: Z00.00 Encounter for general adult medical examination without abnormal findings (principal); R73.09 Other abnormal glucose; Z23 Encounter for immunization

== ENCOUNTER → 2024-07-13 08:06 | Outpatient (BNVA) | payer OTHER, SELFPAY | PROVIDERS: PCP Physician Assistant; Visit Provider Physician Assistant | DX: Z00.01 Encounter for general adult medical examination with abnormal findings (principal); R73.09 Other abnormal glucose; E66.811 Obesity, class 1; Z28.21 Immunization not carried out because of patient refusal | CPT/HCPCS: 90471; 96127 ==

== ENCOUNTER → 2024-12-09 14:05 | Outpatient (BNVA) | payer SELFPAY | PROVIDERS: PCP Physician Assistant; Visit Provider Physician Assistant | DX: Z02.79 Encounter for issue of other medical certificate (principal) ==